=== PATIENT | female | born 1990 | race Caucasian/White ===

== ENCOUNTER → 2022-07-03 | Outpatient (CLI) | payer OTHER ==
--- NOTE | 2022-07-03 17:14 | NUR ---
Pt, Aislinn Rose, presents to walk-in clinic with almost 3 week old baby boy, Misha Rose, for a evaluation. Pt contacted this LC with concerns about leakng of milk, gassiness of baby, and possible tongue tie. During telephone consult LC discusses possible over supply of milk as this is pt's 3rd baby. Misha was born at home with a test worker. He weighed 7# 8oz. Pt states Misha has not been seen by a physician as the test worker is following his status. He weighed 7# 6oz at 5 days of age. PT states no PCP for herself or Misha. Today Misha weighs 8# 12.3oz ( 3978 gms). At this feeding Misha nursing without difficulty, no leaking milk, no hard swallows, or other concerns during the feeding. AFter Misha has a gain of 1.4oz (40 gms). LC evaluates for a tongue tie, notes Misha has a mild tongue and moderate upper lip tether, as well as a high palate. Misha has an appointment with Dr. Chau at [facility] tomorrow, pt aware of option to follow up with this LC as needed. POC: Breastfeed ad leilani. F/U: As scheduled with physicians, walk-in BF clinic as desired.
== END ==
LOC: LAC 13:53
DX: Z39.1 Encounter for care and examination of lactating mother (principal); Z71.89 Other specified counseling